=== PATIENT | male | born 1950 | race Caucasian/White ===

== ENCOUNTER → 2018-04-11 14:32 | Outpatient (CLI) | payer MEDICARE, OTHER, SELFPAY ==
--- NOTE | 2018-04-11 | DI.RAD.S_ITS ---
PROCEDURE: XR CERVICAL SPINE 2V OR 3V INDICATIONS: 67 year-old male with neck pain. TECHNIQUE: 4 view(s) of the cervical spine were acquired. COMPARISON: [facility], SPINE CERVICAL 2 OR 3VW, 06/16/2017, 12:41. FINDINGS: Bones: No fractures or dislocations to the C7 level. The lateral masses of C1 appear intact on the odontoid view. Minimal multilevel cervical spine disc degeneration is not significantly changed. No suspicious bony lesions. Soft tissues: No prevertebral soft tissue swelling. IMPRESSION: Low-grade cervical spine disc degeneration as before, with normal bony alignment to the C7 level. Dictated by: Maikel Meier M.D. on 04/11/2018 at 15:24 Approved by: Maikel Meier M.D. on 04/11/2018 at 15:26
== END ==
PROVIDERS: PCP Internal Medicine; Visit Provider Internal Medicine
DX: M54.2 Cervicalgia (principal); M50.30 Other cervical disc degeneration, unspecified cervical region
CPT/HCPCS: 72040

== ENCOUNTER → 2018-04-28 06:59 | Outpatient (CLI) | payer MEDICARE, OTHER, SELFPAY ==
--- NOTE | 2018-04-28 | DI.MRI.S_ITS ---
PROCEDURE: MR CERVICAL SPINE WO CON INDICATIONS: congenital malformation of the brain TECHNIQUE: Noncontrast sagittal T1 spin echo and T2 fast spin echo, sagittal STIR, foraminal oblique sagittal T2 fast spin echo, and axial gradient echo or T2 fast spin echo through the cervical spine. COMPARISON: [facility], MR, T-SPINE W&WO CONTRAST, 06/22/2017, 7:51. FINDINGS: Image quality: Excellent. Alignment and Curvature: There is normal bony alignment. Bone Marrow: There is no signal change involving the C2 body, dens and posterior elements on the left in keeping with metastatic lesion presumably multiple myeloma. There is associated mild left canal narrowing. Further evaluation with contrast-enhanced exam is recommended. This also closely abuts the left vertebral artery. There is questionable signal change within the T4 vertebral body on the sagittal STIR pulse sequence however technically indeterminate and not entirely included on the study Spinal Cord: Visualized spinal cord has normal size and signal. No cerebellar tonsillar herniation. Paraspinous Soft Tissues: Borderline enlarged left cervical lymph node seen on image 18 series 4 C2-C3: Bilateral uncovertebral arthropathy and posterior intervening disc osteophyte complex which is asymmetric, left greater than right. There is associated mild left-sided canal narrowing. There is moderate narrowing of the left neural foramen, in part due to abnormal soft tissue although this would be better characterize with. C3-C4: Bilateral uncovertebral arthropathy and posterior intervening disc osteophyte complex, and bilateral facet disease. Mild canal narrowing is present. Moderate left and severe right foraminal stenoses. C4-C5: Bilateral uncovertebral arthropathy and posterior intervening disc osteophyte complex, and bilateral facet arthropathy. Mild canal narrowing. Moderate bilateral foraminal stenoses. C5-C6: Bilateral uncovertebral arthropathy and posterior intervening disc osteophyte complex, and bilateral facet disease. Mild canal narrowing. Moderate bilateral foraminal stenoses. C6-C7: Bilateral uncovertebral arthropathy and posterior intervening disc osteophyte complex, and bilateral facet arthropathy. Mild canal narrowing with effacement of the anterior thecal sac. Mild bilateral foraminal stenoses. C7-T1: Normal appearance. IMPRESSION: Marrow signal changes involving C2, including the body and as well as the posterior elements on the left, in keeping with metastatic disease/myeloma. Possible abnormal soft tissue narrowing of the left C2-C3 neuroforamen which would be better evaluated with contrast-enhanced MRI, which is recommended. Emergent radiation oncology consultation is also recommended. Findings and recommendations are personally telephoned discussed with Dr.Livia Trejo covering for Dr. Carson on 04/28/18. Mild C6-C7 canal narrowing. Diffuse bilateral foraminal stenoses as detailed above. Dictated by: Vlad Peng M.D. on 04/28/2018 at 9:20 Approved by: Vlad Peng M.D. on 04/28/2018 at 11:44
== END ==
PROVIDERS: Family Provider Internal Medicine; PCP Internal Medicine; Visit Provider Internal Medicine
DX: C90.00 Multiple myeloma not having achieved remission (principal); M48.02 Spinal stenosis, cervical region
CPT/HCPCS: 72141